=== PATIENT | male | born 1990 | race Caucasian/White ===

== ENCOUNTER 2024-12-28 09:46 | Emergency (ER) | payer OTHER, SELFPAY ==
[2024-12-28 09:47] VITALS: BP 147/81; PULSE 57; RESP 13; TEMP 36.7; O2SAT 98; BMI 31.7
--- NOTE | 2024-12-28 11:19 | ED.SKABFB ---
HPI - Skin/Abscess/Foreign Bdy General Chief complaint: Skin/Abscess/Foreign Body Stated complaint: Left eye pain Time Seen by Provider: 12/28/24 11:19 Source: patient Mode of arrival: Ambulatory Limitations: no limitations History of Present Illness HPI narrative: 34-year-old male no significant past medical history presents for left eye swelling and pain, he states that he attempted a ?pop something near his eye yesterday and states that this morning he woke up with the eye swollen. He denies any loss of vision denies any other symptoms at this time. Patient does wear glasses at baseline, denies any other symptoms at this time. Related Data Previous Rx's Medication Instructions Recorded cefdinir 300 mg capsule 300 mg PO BID 1 week #14 caps 12/28/24 sulfamethoxazole 800 1 tab PO BID 1 week #14 tabs 12/28/24 mg-trimethoprim 160 mg tablet (Bactrim DS) Allergies Allergy/AdvReac Type Severity Reaction Status Date / Time No Known Drug Allergies Allergy Verified 12/28/24 09:53 Review of Systems Review of Systems Narrative: General: Denies fever, chills, weight loss HEENT: Positive Left eyelid swelling, Denies headache, eye drainage, eye irritation, head trauma, sore throat, voice change Cardiovascular: Denies any chest pain, palpitations, tachycardia Respiratory: Denies any shortness of breath, cough, wheeze, stridor GI/: Denies any abdominal pain, nausea, vomiting, diarrhea, bright red blood per rectum, melanotic stools, urinary frequency, urinary retention, dysuria, hematuria MSK: Denies any joint pain, muscle pains, swelling Skin: Denies any rashes, lesions, discoloration Neuro: Denies any headache, lightheadedness, dizziness, fainting, weakness Psych: Denies SI/HI Patient History Social History Smoking Status: Unknown if ever smoked Smoking Status: Unknown if ever smoked Exam Narrative Exam Narrative: General: Cooperative, well-developed, not in acute distress HEENT: Normocephalic, atraumatic, PERRLA, normal sclera, left eyelids slightly edematous, there does appear to be pimple to the eyebrow of the left side, patient without any corneal abrasions after fluorescein staining negative Westley sign no pain with extraocular eye motion Neck: Active full range of motion, atraumatic Chest: Normal to inspection, negative crepitus, no overlying erythema ecchymosis Respiratory: Normal respiratory effort, not in acute respiratory distress, clear to auscultation bilaterally negative cough, wheeze, tachypnea, rhonchi, rales Cardiology: Regular rate rhythm negative gallop, murmur, rubs GI/: No tenderness to palpation, soft, non rigid, normal to inspection, exam deferred MSK: Full active range of motion in all 4 extremities, atraumatic, no tenderness to palpation of any bony prominences Skin: No rashes or lesions noted Neuro: Alert awake oriented x3, moves all 4 extremities spontaneously, cranial nerves intact, able to answer all questions appropriately follows commands appropriately Psych: Cooperative, negative suicidal or homicidal ideations Initial Vital Signs Initial Vital Signs: Vital Signs Temperature 98.0 F 12/28/24 09:47 Pulse Rate 57 L 12/28/24 09:47 Respiratory Rate 13 12/28/24 09:47 Blood Pressure 147/81 H 12/28/24 09:47 Pulse Oximetry 98 12/28/24 09:47 Oxygen Delivery Method Room Air 12/28/24 09:47 Course Orders Ordered: Discontinued Medications Fluorescein Sodium (Fluorescein 1 Mg Strip) 1 mg EYE-BOTH NOW ONE Stop: 12/28/24 11:21 Last Admin: 12/28/24 11:30 Dose: 1 mg Documented By: SUGAR Proparacaine HCl (Proparacaine 0.5% Ophth Rachelle) 1 drops EYE-BOTH NOW ONE Stop: 12/28/24 11:21 Last Admin: 12/28/24 11:30 Dose: 1 1000units Documented By: SUGAR Vital Signs Vital signs: Vital Signs - 8 hr 12/28/24 09:47 Temperature 98.0 F Pulse Rate 57 L Respiratory Rate 13 Blood Pressure 147/81 H Pulse Oximetry 98 Oxygen Delivery Method Room Air MDM - Skin/Abscess/Foreign Bdy Differential Diagnosis Differential diagnosis: Likely cellulitis MDM Narrative Medical decision making narrative: 34-year-old male without any significant past medical history presents to the emergency department from home for evaluation of left eyelid swelling, he states that yesterday he tried to pop something to his eyebrow, states that he woke up and his eyelid was swollen, he denies any visual loss or changes, does wear glasses at baseline. Patient on exam has slightly edematous eyelid pimple noted to the top of the eyebrow but no extraocular eye motion pain. Patient with negative fluorescein stain, negative Westley sign, we will treat patient for possible preseptal cellulitis still some antibiotics here instructed to follow up with primary care in outpatient setting he was given strict return precautions he verbalized understanding of this and agrees to being discharged home with outpatient follow up Discharge Plan Departure Patient Disposition: Home Clinical Impression: Preseptal cellulitis of left eye Activity Restrictions/Additional Instructions: Please follow up with primary care Please read the discharge instructions sheet carefully and bring all papers to all doctor follow-up visits, as it may contain information that your doctor may want to see. Disease processes change and evolve, if your symptoms worsen or if you develop any new symptoms that are concerning to you please return for evaluation. Your evaluation today does not show any evidence of any life-threatening/serious illnesses requiring admission to the hospital or surgery. Please follow-up with your doctor for re-evaluation in approximately 1 day. Seek immediate medical attention for any worrisome symptoms. *If you do not have a primary care provider please contact the [facility] Resource line at [phone]. They will ask some questions about your medical history and help get you set up with a doctor in the community. Prescriptions: New sulfamethoxazole-trimethoprim [Bactrim DS] 800-160 mg tablet 1 tab PO BID 7 Days Qty: 14 0RF cefdinir 300 mg capsule 300 mg PO BID 7 Days Qty: 14 0RF Stand Alone Forms: Patient Portal/API/Survey
[2024-12-28] MEDS: PROPARACAINE 0.5% OPHTH SOL 1 DROPS EYE-BOTH (11:30)
[2024-12-28] MEDS: FLUORESCEIN 1 MG STRIP EYE-BOTH (11:30)
[2024-12-28] MEDS: TRIMETH/SULFA 160/800 (DS) TABLET 1 TAB PO (12:17)
[2024-12-28] MEDS: CEFDINIR 300 MG CAPSULE PO (12:17)
[2024-12-28 12:35] VITALS: BP 137/73; PULSE 50; O2SAT 99
== END 2024-12-28 12:34 | disposition home or self-care (01) ==
PROVIDERS: Emergency Provider Student in an Organized Health Care Education/Training Program
DX: L03.213 Periorbital cellulitis (principal)
CPT/HCPCS: 99283